=== PATIENT | male | born 1970 | race Caucasian/White ===

== ENCOUNTER 2017-01-02 16:02 | Emergency (ER) | payer OTHER ==
[2017-01-02] MEDS ORDERED: PROMETHAZINE HCL 50 MG/ML AMPUL IM ONE ×2 (16:26→16:32)
[2017-01-02] MEDS ORDERED: MORPHINE SULFATE 10 MG/ML SYRG IM ONE (16:26)
[2017-01-02] MEDS ORDERED: MORPHINE SULFATE 10 MG/ML SYRG ONE (16:32)
--- NOTE | 2017-01-02 16:37 | ERNOTE ---
Upper Extremity HPI - Narrative Date of Service: 01/02/17 - General Extremities Pain Location: shoulder: right Time Seen by Provider: 01/02/17 16:23 Source: patient, RN notes reviewed Exam Limitations: no limitations - Immun/Allergies/Home Medications Allergies/Adverse Reactions: Allergies Allergy/AdvReac Type Severity Reaction Status Date / Time No Known Allergies Allergy Verified 01/02/17 16:22 Home Medications: HOME MEDICATIONS metFORMIN HCL [Metformin HCl] 500 mg PO BID 02/12/13 [Last Taken Unknown] ALPRAZolam [Xanax] 0.25 mg PO TID PRN 12/23/16 [Last Taken Unknown] Ascorbic Acid [Vitamin C with Shelia Hips] 500 mg PO DAILY 12/23/16 [Last Taken Unknown] Aspirin 81 mg PO DAILY 12/23/16 [Last Taken Unknown] Escitalopram Oxalate [Lexapro] 10 mg PO DAILY 12/23/16 [Last Taken Unknown] Furosemide [Lasix] 40 mg PO DAILY 12/23/16 [Last Taken Unknown] Glimepiride 1 mg PO DAILY 12/23/16 [Last Taken Unknown] Losartan Potassium [Cozaar] 50 mg PO DAILY 12/23/16 [Last Taken Unknown] Multivitamin [Multivitamins] 1 each PO DAILY 12/23/16 [Last Taken Unknown] Omeprazole 40 mg PO DAILY 12/23/16 [Last Taken Unknown] Warfarin Sodium [Coumadin] 7 mg PO DAILY 12/23/16 [Last Taken Unknown] HYDROcodone/ACETAMINOPHEN [Lamar 5-325] 1 - 2 tab PO Q6H PRN #30 tab 01/02/17 [ Last Taken Unknown] - History of Present Illness Narrative: 46 y/o male with right shoulder pain and limited ROM d/t a fall. 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 He is holding the right arm above his head and is unable to move it without extreme pain. He reports that he has dislocated the shoulder in the past but was able to put it back in place on his own. Date (Duration): 01/02/17 Occurred: just prior to arrival Location of Incident: home Method of Injury: Reports: fell Reason for Fall: Reports: lost balance Loss of Consciousness: Reports: no loss of consciousness Associated Symptoms: Denies: tingling, weakness, numbness distally Other Injuries: Reports: none Prior Treament: Denies: recently seen Review of Systems - Review of Systems Constitutional: Absent: recent illness, fever, chills EYE: Present: no symptoms reported ENT: Present: no symptoms reported Respiratory: Present: no symptoms reported Cardiology: Absent: chest pain, syncope Gastrointestinal/Abdominal: Present: no symptoms reported Genitourinary: Present: no symptoms reported Musculoskeletal: Present: joint pain. Absent: back pain, neck pain Skin: Absent: lesions, lumps, change in color Neurological: Absent: weakness, numbness, tingling Endocrine: Present: no symptoms reported Hematologic/Lymphatic: Present: easy bruising, easy bleeding Psych: Present: no symptoms reported - Patient's Past Medical History Patient History - Medical: Diabetes Type 2, Obesity Patient History - Cardiac/Respiratory: Valvular Heart Disease Patient History - Cancer: No Hx of Cancer Patient History - Surgical Procedures: Other - Aortic valve replacement - Social History Living Situations: home Psych History: Hx of Anxiety Smoking Status: Never smoker Alcohol Use: none Drug Use: none Physical Exam - Physical Exam General Appearance: Present: wd/wn, alert, moderate distress, obese Head Exam: Present: normal inspection, no evidence of injury Respiratory: Present: no respiratory distress, no accessory muscle use Cardiovascular/Chest: Present: normal peripheral pulses Peripheral Pulses: N=norm/S=strong/W=weak/B=bound/A=absent: Radial (R): Strong, Radial (L): Strong Extremity Exam: Present: no edema, decreased range of motion - Right shoulder Neurological Exam: Present: alert, oriented, normal mood/affect, no motor/ sensory deficits Skin Exam: Present: normal color, warm/dry ED Progress - Vital Signs Patient's Vital Signs:: I have reviewed the patient's vital signs. Vital Signs: Vital Signs 01/02/17 16:13 Temperature 37.0 C Pulse Rate 85 Respiratory 18 Rate Blood Pressure 140/101 - X-Ray X-Ray #1 X-Ray: shoulder Interpretation: Reviewed by me X-ray Comments: Technique: Shoulder 3 of More Views RT * Findings: The right arm remains raised. This can be seen in the luxatio erecta. No identifiable fracture. There are degenerative changes. IMPRESSION: Findings are as above Electronically signed by Solo Tyler M.D.. - Progress/Reassessment Chief Complaint: Shoulder Injury/Pain Progress:: Improved Procedures Location: Right shoulder Pre-Proc Neuro Vasc Exam: normal Splint: Shoulder immobilizer Alignment good: Yes Splint applied by: Nurse Post-Proc Neuro Vasc Exam: normal Complications: Pt vazquez procedure well Plan - Plan Plan: Paul KRISHNAN contacted regarding dislocation. He performed the joint reduction under sedation done by Steve Snyder CRNA. Patient reported having increasing pain while he was waking up - Lamar given, tolerated well. Departure Clinical Impression: Dislocation, shoulder, inferior Qualifiers: Encounter type: initial encounter Laterality: right Qualified Code(s): S43.034A - Inferior dislocation of right humerus, initial encounter - Departure Disposition: Home Follow Up Needed Condition: Stable Instructions: Shoulder Dislocation, [id number] Additional Instructions: Keep sling in place Contact orthopedics tomorrow morning to scheduled follow up appointment on Saturday Continue your current medications Referrals: Paul Monahan, PAC [[facility]] - Prescriptions: HYDROcodone/ACETAMINOPHEN [Lamar 5-325] 1 - 2 tab PO Q6H PRN #30 tab PRN Reason: Pain
[2017-01-02] MEDS ORDERED: HYDROmorphone HCL 1 MG/ML DISP.SYRIN IV ONE (17:46)
[2017-01-02] MEDS ORDERED: HYDROmorphone HCL 1 MG/ML DISP.SYRIN ONE (18:01)
[2017-01-02] MEDS ORDERED: HYDROcodone/ACETAMINOPHEN 1 EACH TABLET PO ONE (19:34)
[2017-01-02] MEDS ORDERED: HYDROcodone/ACETAMINOPHEN 1 EACH TABLET ONE (19:43)
--- NOTE | 2017-01-03 07:55 | CONS ---
[facility] - General Date of Service: 01/02/17 Narrative: 46-year-old male with history of fall while carrying his dog. She states he fell landing on a somewhat outstretched and sounds like more abducted arm. Patient had immediate onset of pain into his right shoulder. She noted an inability to bring his right arm down to his side. [facility] ER for evaluation of right shoulder pain. During the course of evaluation patient was noted to have a inferior and posterior dislocation to his right shoulder. - History of Present Illness Allergies/Adverse Reactions: Allergies No Known Allergies Allergy (Verified 01/02/17 16:22) Home Medications: Home Medications Medication Instructions Recorded Last Taken metFORMIN HCL [Metformin HCl] 500 mg PO BID 02/12/13 Unknown ALPRAZolam [Xanax] 0.25 mg PO TID PRN 12/23/16 Unknown Ascorbic Acid [Vitamin C with Shelia 500 mg PO DAILY 12/23/16 Unknown Hips] Aspirin 81 mg PO DAILY 12/23/16 Unknown Escitalopram Oxalate [Lexapro] 10 mg PO DAILY 12/23/16 Unknown Furosemide [Lasix] 40 mg PO DAILY 12/23/16 Unknown Glimepiride 1 mg PO DAILY 12/23/16 Unknown Losartan Potassium [Cozaar] 50 mg PO DAILY 12/23/16 Unknown Multivitamin [Multivitamins] 1 each PO DAILY 12/23/16 Unknown Omeprazole 40 mg PO DAILY 12/23/16 Unknown Warfarin Sodium [Coumadin] 7 mg PO DAILY 12/23/16 Unknown - Patient's Past Medical History Patient History - Medical: Diabetes Type 2, Obesity Patient History - Cardiac/Respiratory: Valvular Heart Disease Patient History - Cancer: No Hx of Cancer Patient History - Surgical Procedures: Other - Aortic valve replacement - Social History Living Situations: home Psych History: Hx of Anxiety Smoking Status: Never smoker Alcohol Use: none Drug Use: none Procedures APPLICATION OF SPLINT (09/01/07) ESOPHAGOGASTRODUODENOSCOPY [EGD] W/CLOSED BIOPSY (03/17/08) Physical Examination - Exam Narrative: She is awake alert answers all questions appropriately. Screening medical exam had been completed by ER physician noted additional findings were found. Examination today of right upper extremity reveals him holding his right shoulder in an abducted at 90 position. As considerable pain noted into the right shoulder. His open wounds. Strength of the right hand full finger range of motion does complain of some mild tingling to all of his fingers. Good pulses were noted. Vital Signs: Vital Signs - Last Taken Temp 36.6 C 01/02/17 19:08 Pulse 80 01/02/17 19:08 Resp 18 01/02/17 19:08 BP 141/80 01/02/17 19:08 Pulse Ox 97 01/02/17 19:08 O2 Oxygen Delivery Method Room Air - Results and Findings: Narrative: Impression: Right shoulder posterior inferior dislocation without obvious signs of fracture Plan: Discussed with patient the need for reduction of this. The severity of this dislocation. This is not a normal shoulder dislocation I discussed with him the need for location with conscious sedation via anesthesia. I discussed with him the risk of nerve vessel damage risk of damage to any joint structures during the relocation any damage to structures and had occurred with the dislocation. He is agreeable to this consent was signed. Please refer to procedure note for joint reduction - Assessments/Findings (1) Dislocation, shoulder, inferior Problem: Acute Qualifiers: Encounter type: initial encounter Laterality: right Qualified Code(s): S43.034A - Inferior dislocation of right humerus, initial encounter
--- NOTE | 2017-01-03 07:57 | PROC NOTE ---
ED Procedures - Joint Reduction Joint Reduction Site: shoulder (R) Conscious Sedation: Yes - completed via Steve Snyder CRNA department of anesthesia Reduction Attempts: 1 Pre-Procedure NV Exam: Yes Post-Procedure NV Exam: Yes Post Joint Reduction Film: no fracture seen Progress: Patient was awakened. Her status was intact to his right upper extremity. Good reduction of dislocation without signs of fracture. Patient was placed into a shoulder immobilizer. Discussed with him and his mother the need to wear this essentially 24 7 for the next few days up. Remove the brace for just bathing. He will be discharged home with prescription for pain medication via ER provider to follow up in our office and the following Saturday return sooner if problems
[2017-01-04 10:17] VITALS: BP 147/86
== END 2017-01-02 20:13 | disposition home or self-care (01) ==
LOC: ER 16:02
PROC: 0RSJXZZ Reposition Right Shoulder Joint, External Approach (ICD-10-PCS; principal; 2017-01-02)
DX: S43.034A Inferior dislocation of right humerus, initial encounter (principal); W10.8XXA Fall (on) (from) other stairs and steps, initial encounter; Y93.89 Activity, other specified; Y92.59 Other trade areas as the place of occurrence of the external cause; E11.9 Type 2 diabetes mellitus without complications; I38 Endocarditis, valve unspecified